=== PATIENT | female | born 1955 | race Caucasian/White ===

== ENCOUNTER 2023-05-29 09:16 | Day surgery (SDC) | payer MEDICARE ==
[~2023-05-29] VITALS: Ht 162.6 cm; Wt 72.6 kg
[2023-05-29] MEDS ORDERED: LIDOCAINE 2% 100 MG/5 ML SYR IVP ONE (10:20)
[2023-05-29] MEDS ORDERED: fentaNYL citrate 0.05 MG/ML VIAL ONE (10:20)
[2023-05-29] MEDS ORDERED: LIDOCAINE 2% 100 MG/5 ML UJET TP ONE (10:21)
[2023-05-29] MEDS ORDERED: MIDAZOLAM 5 MG/5 ML VIAL ONE (11:11)
== END 2023-05-29 12:24 | disposition home or self-care (01) ==
LOC: MDS 09:16 → MMU 09:17 → MDS 12:24
PROVIDERS: ATTEND Internal Medicine Gastroenterology
DX: K59.00 Constipation, unspecified (principal); I10 Essential (primary) hypertension; E78.00 Pure hypercholesterolemia, unspecified; E05.90 Thyrotoxicosis, unspecified without thyrotoxic crisis or storm; Z90.49 Acquired absence of other specified parts of digestive tract; Z79.899 Other long term (current) drug therapy
CPT/HCPCS: 45378; J2001; J2250; J3010